=== PATIENT | male | born 1980 | race Two or more races ===

== ENCOUNTER 2016-08-14 14:00 | Emergency (ER) | payer OTHER ==
[~2016-08-14] VITALS: Ht 182.9 cm; Wt 120.2 kg
[2016-08-14 15:15] VITALS: BP 142/87
[2016-08-14] MEDS ORDERED: TETANUS-DIPTH-ACEL PERTUSSIS 0.5ML SYRG IM ONE (17:00)
[2016-08-14] MEDS ORDERED: cefTRIAXone SOD 1,000 MG VL IM ONE (17:00)
== END 2016-08-14 17:46 | disposition home or self-care (01) ==
LOC: ER 14:00
DX: S61.213A Laceration without foreign body of left middle finger without damage to nail, initial encounter (principal); X58.XXXA Exposure to other specified factors, initial encounter; Y93.89 Activity, other specified; Y99.0 Civilian activity done for income or pay; Y92.69 Other specified industrial and construction area as the place of occurrence of the external cause
CPT/HCPCS: 12001; 90471; 90715; 96372; 99284; J0696